=== PATIENT | female | born 1950 | race African-American/Black ===

== ENCOUNTER 2019-11-13 11:57 | Emergency (ER) | payer MEDICARE, MEDICAID ==
[~2019-11-13] VITALS: Ht 157.5 cm; Wt 67.1 kg
[~2019-11-13 11:57] MED LIST: CLON0.1T; ENAL10TA86 PO
[2019-11-13] MEDS ORDERED: cloNIDine HCL 0.1 MG TAB PO ONE (12:45)
[2019-11-13 13:15] VITALS: BP 152/98
[2019-11-13] MEDS ORDERED: HYDROcodone-ACET 5/325MG TAB PO ONE (13:30)
== END 2019-11-13 13:42 | disposition home or self-care (01) ==
LOC: ER 11:57
DX: S93.602A Unspecified sprain of left foot, initial encounter (principal); I10 Essential (primary) hypertension; W22.8XXA Striking against or struck by other objects, initial encounter; Y93.89 Activity, other specified; Y92.89 Other specified places as the place of occurrence of the external cause; Y99.8 Other external cause status
CPT/HCPCS: 73610